=== PATIENT | female | born 1950 | race Caucasian/White ===

== ENCOUNTER 2020-06-11 05:48 | Observation (INO) | payer MEDICARE ==
[2020-06-07 12:28] LABS: BASOPHILS # (AUTO) 0.1 (0.0-0.1); BASOPHILS % 0.7 % (0.0-1.0); EOSINOPHILS # (AUTO) 0.1 (0.0-0.4); EOSINOPHILS % 1.1 % (0.0-6.0); HEMATOCRIT 41.1 % (34.2-44.1); HEMOGLOBIN 13.1 g/dL (12.0-16.0); LYMPHOCYTES # (AUTO) 1.5 (1.0-3.2); LYMPHOCYTES % 20.2 % (18.0-39.1); MEAN CORPUSCULAR HGB CONC 31.9 g/dL (31-35); MEAN CORPUSCULAR VOLUME 90.9 fL (81-99); MONOCYTES # (AUTO) 0.6 (0.2-0.8); MONOCYTES % 7.8 % (4.4-11.3); NEUTROPHILS # (AUTO) 5.1 (2.1-6.9); NEUTROPHILS % 70.1 % (38.7-80.0); PLATELET COUNT 207 x10e3/uL (140-360); RED BLOOD COUNT 4.52 x10e6/uL (3.6-5.1)
[~2020-06-11] VITALS: Ht 162.6 cm; Wt 95.3 kg
[~2020-06-11 05:48] MED LIST: CRESTOR10 MG PO; DIOVAN80 MG PO; LEVOTHYROXINE75 MCG PO; ZETIA10 MG PO
[2020-06-11] MEDS ORDERED: CEFAZOLIN SOD 1 GM/NS 50ML 100 ML IV ONE (06:19)
[2020-06-11] MEDS ORDERED: GABAPENTIN 300 MG CAP ONE (06:19)
[2020-06-11] MEDS ORDERED: DEXAMETHASONE SOD PHOS 10 MG/1 ML VIAL ONE (06:19)
[2020-06-11] MEDS ORDERED: CELECOXIB 200 MG CAP ONE (06:19)
[2020-06-11] MEDS ORDERED: TRANEXAMIC ACID 1,000 MG/10 ML ML ONE (07:00)
[2020-06-11] MEDS ORDERED: VANCOMYCIN HCL 1,000 MG ONE (07:00)
[2020-06-11] MEDS ORDERED: SODIUM CHLORIDE 0.9% 500ML 500 ML ONE (07:00)
[2020-06-11] MEDS ORDERED: ZOLPIDEM TARTRATE 5 MG TAB PO PRN (08:45)
[2020-06-11] MEDS ORDERED: KETOROLAC TROMETHAMINE 30 MG/ML VIAL IV PRN (08:45)
[2020-06-11] MEDS ORDERED: DOCUSATE SODIUM 100 MG CAP PO PRN (08:45)
[2020-06-11] MEDS ORDERED: ACETAMINOPHEN 650 MG SUPP PR PRN (08:45)
[2020-06-11] MEDS ORDERED: HYDROCODONE/APAP 7.5MG-325MG 1 EA TAB PO PRN (08:45)
[2020-06-11] MEDS ORDERED: DIPHENHYDRAMINE HCL INJ 50 MG/ML VIAL IV PRN (08:45)
[2020-06-11] MEDS ORDERED: ROPIVACAINE 246.25 MG, EPINEPHRINE HCL 1:1000 1ML 0.5 MG, CLONIDINE HCL 0.08 MG, KETORO... INJ ONE ×5 (09:00)
[2020-06-11 09:50] VITALS: BP 94/85
[2020-06-11 10:08] LABS: BASOPHILS # (AUTO) 0.1 (0.0-0.1); BASOPHILS % 0.4 % (0.0-1.0); EOSINOPHILS % 0.1 % (0.0-6.0); HEMATOCRIT 40.4 % (34.2-44.1); HEMOGLOBIN 12.9 g/dL (12.0-16.0); LYMPHOCYTES # (AUTO) 1.1 (1.0-3.2); MEAN CORPUSCULAR HEMOGLOBIN 29.7 pg (28-32); MEAN CORPUSCULAR HGB CONC 31.9 g/dL (31-35); MEAN CORPUSCULAR VOLUME 93.1 fL (81-99); MONOCYTES # (AUTO) 0.2 (0.2-0.8); MONOCYTES % 1.6 % (4.4-11.3); NEUTROPHILS # (AUTO) 9.7 (2.1-6.9); NEUTROPHILS % 87.3 % (38.7-80.0); PLATELET COUNT 203 x10e3/uL (140-360); RED BLOOD COUNT 4.34 x10e6/uL (3.6-5.1); RED CELL DISTRIBUTION WIDTH 13.1 % (11.7-14.4)
[2020-06-11] MEDS ORDERED: SODIUM CHLORIDE 0.9% 1000ML 1,000 ML IV SCH (10:15)
[2020-06-11] MEDS: ASPIRIN 325 MG TAB PO SCH ×2 (10:17→16:08)
[2020-06-11 11:13] VITALS: BP 105/54
[2020-06-11] MEDS: ONDANSETRON HCL INJ 2MG/ML 2ML 2 MG/ML VIAL IV PRN ×2 (12:00→18:06)
[2020-06-11] MEDS ORDERED: PROPOFOL IV EMULSION 10 MG/ML 20 ML VIAL ONE (13:19)
[2020-06-11] MEDS ORDERED: ONDANSETRON HCL INJ 2MG/ML 2ML 2 MG/ML VIAL ONE (13:19)
[2020-06-11] MEDS ORDERED: SEVOFLURANE INHAL SOLN 250 ML PEN BTL ONE (13:19)
[2020-06-11] MEDS ORDERED: LIDOCAINE HCL 2% LOCAL INJ 5 ML SDV VIAL INJ ONE (13:19)
[2020-06-11] MEDS: CEFAZOLIN SOD 1 GM/NS 50ML 50 ML IV SCH ×2 (15:32→23:07)
[2020-06-11 15:35] VITALS: BP 116/59
[2020-06-11] MEDS ORDERED: SODIUM CHLORIDE 0.9% 50ML 50 ML ONE (15:41)
[2020-06-11] MEDS: CELECOXIB 200 MG CAP PO SCH (16:08)
[2020-06-11] MEDS ORDERED: LIDOCAINE 2%/ EPINEPHRINE 20ML MDV ONE (19:30)
[2020-06-11] MEDS ORDERED: ROPIVACAINE 0.5% 5 MG/ML 30 ML SDV ONE (19:30)
[2020-06-11] MEDS ORDERED: FENTANYL CITRATE/PF 100MCG/2 ML INJ ONE (19:39)
[2020-06-11] MEDS ORDERED: MIDAZOLAM HCL 2 MG/2 ML VIAL ONE (19:39)
[2020-06-11 20:00] VITALS: BP 95/50
[2020-06-11 21:00] VITALS: BP 95/50
[2020-06-11] MEDS: HYDROCODONE/APAP 5MG-325MG TAB PO PRN (23:15)
[2020-06-12] VITALS: BP 101/52
[2020-06-12 04:00] VITALS: BP 97/58
[2020-06-12] MEDS: HYDROCODONE/APAP 5MG-325MG TAB PO PRN ×2 (05:29→10:10)
[2020-06-12 05:45] LABS: HEMOGLOBIN 11.2 g/dL (12.0-16.0)
[2020-06-12] MEDS: ONDANSETRON HCL INJ 2MG/ML 2ML 2 MG/ML VIAL IV PRN (06:38)
[2020-06-12 07:23] VITALS: BP 90/53
[2020-06-12 08:07] VITALS: BP 90/53
[2020-06-12] MEDS ORDERED: ACETAMINOPHEN 1000 MG/100 ML IV PRN (08:45)
[2020-06-12] MEDS: CEFAZOLIN SOD 1 GM/NS 50ML 50 ML IV SCH (08:48)
[2020-06-12] MEDS: ASPIRIN 325 MG TAB PO SCH (08:48)
[2020-06-12] MEDS: CELECOXIB 200 MG CAP PO SCH (08:48)
[2020-06-12 11:21] VITALS: BP 92/57
[2020-06-12] MEDS ORDERED: EZETIMIBE 10 MG TAB PO SCH (21:00)
[2020-06-12] MEDS ORDERED: LEVOTHYROXINE SODIUM 75 MCG TAB PO SCH (21:00)
[2020-06-12] MEDS ORDERED: SIMVASTATIN 20 MG TAB PO SCH (21:00)
== END 2020-06-12 15:02 | disposition home or self-care (01) ==
LOC: OR 05:48 → PACU V 08:45 → MED/SURG 09:47
PROVIDERS: ADMIT Specialist; ATTEND Specialist
DX: M17.0 Bilateral primary osteoarthritis of knee (principal); Z20.822 Contact with and (suspected) exposure to COVID-19; E78.5 Hyperlipidemia, unspecified; E03.9 Hypothyroidism, unspecified; K76.0 Fatty (change of) liver, not elsewhere classified; K29.70 Gastritis, unspecified, without bleeding; G47.33 Obstructive sleep apnea (adult) (pediatric); G47.00 Insomnia, unspecified; E78.00 Pure hypercholesterolemia, unspecified; R35.1 Nocturia; E66.01 Morbid (severe) obesity due to excess calories; Z68.36 Body mass index [BMI] 36.0-36.9, adult; Q60.2 Renal agenesis, unspecified; I13.10 Hypertensive heart and chronic kidney disease without heart failure, with stage 1 through stage 4 chronic kidney disease, or unspecified chronic kidney disease; E11.22 Type 2 diabetes mellitus with diabetic chronic kidney disease; Z79.01 Long term (current) use of anticoagulants; Z95.2 Presence of prosthetic heart valve; H40.9 Unspecified glaucoma; Q23.1 Congenital insufficiency of aortic valve; R23.2 Flushing; N18.30 Chronic kidney disease, stage 3 unspecified; Z01.818 Encounter for other preprocedural examination
CPT/HCPCS: 27447; 36415 ×3; 71046; 73560; 85014; 85018; 85025 ×2; 86850; 86900; 86920; 97110; 97116 ×2; 97161; 97530; C1713 ×5; C1776; G0378 ×2; J0171; J0690 ×2; J1100; J1885 ×2; J2001 ×2; J2250; J2405 ×2; J2704; J2795; J3010; J3370; J7040; U0002

== ENCOUNTER 2020-08-27 08:00 | Observation (INO) | payer MEDICARE ==
[2020-08-23 12:02] LABS: BASOPHILS % 0.7 % (0.0-1.0); EOSINOPHILS # (AUTO) 0.1 (0.0-0.4); HEMATOCRIT 40.2 % (34.2-44.1); HEMOGLOBIN 12.7 g/dL (12.0-16.0); LYMPHOCYTES # (AUTO) 1.3 (1.0-3.2); LYMPHOCYTES % 22.7 % (18.0-39.1); MEAN CORPUSCULAR HEMOGLOBIN 28.9 pg (28-32); MEAN CORPUSCULAR HGB CONC 31.6 g/dL (31-35); MEAN CORPUSCULAR VOLUME 91.4 fL (81-99); MONOCYTES # (AUTO) 0.5 (0.2-0.8); MONOCYTES % 9.2 % (4.4-11.3); NEUTROPHILS # (AUTO) 3.8 (2.1-6.9); NEUTROPHILS % 66.2 % (38.7-80.0); PLATELET COUNT 212 x10e3/uL (140-360)
[2020-08-23 12:24] LABS: INR 0.83
[2020-08-23 12:25] LABS: PARTIAL THROMBOPLASTIN TIME 29.6 seconds (23.8-35.5)
[2020-08-23 12:31] LABS: ANION GAP 14.9 mmol/L (8-16); CALCIUM 8.8 mg/dL (8.4-10.2); CREATININE, SERUM 0.99 mg/dL (0.57-1.11); POTASSIUM 4.9 mmol/L (3.5-5.1)
[~2020-08-27 08:00] MED LIST changes: +CELECOXIB 200 MG CAP ONE; +DEXAMETHASONE SOD PHOS 10 MG/1 ML VIAL ONE; +GABAPENTIN 300 MG CAP ONE; +LIOTHYRONINE SO5 MCG PO; +ROPIVACAINE 246.25 MG, EPINEPHRINE HCL 1:1000 1ML 0.5 MG, CLONIDINE HCL 0.08 MG, KETORO... INJ ONE; +SODIUM CHLORIDE 0.9% 500ML 500 ML ONE; +SODIUM CHLORIDE 0.9% 50ML 100 ML ONE; +TRANEXAMIC ACID 1,000 MG/10 ML ML ONE; +Vancomycin IV 1,000 MG ONE
[2020-08-27 12:00] VITALS: BP 109/56
[2020-08-27] MEDS ORDERED: HYDROCODONE/APAP 5MG-325MG TAB PO PRN (13:30)
[2020-08-27] MEDS ORDERED: ZOLPIDEM TARTRATE 5 MG TAB PO PRN (13:30)
[2020-08-27] MEDS ORDERED: ONDANSETRON HCL INJ 2MG/ML 2ML 2 MG/ML VIAL IV PRN (13:30)
[2020-08-27] MEDS ORDERED: SODIUM CHLORIDE 0.9% 1000ML 1,000 ML IV SCH (13:30)
[2020-08-27] MEDS ORDERED: HYDROCODONE/APAP 7.5MG-325MG 1 EA TAB PO PRN (13:30)
[2020-08-27] MEDS ORDERED: ACETAMINOPHEN 1000 MG/100 ML IV PRN (13:45)
[2020-08-27] MEDS ORDERED: DIPHENHYDRAMINE HCL INJ 50 MG/ML VIAL IV PRN (13:45)
[2020-08-27] MEDS ORDERED: KETOROLAC TROMETHAMINE 30 MG/ML VIAL IV PRN (13:45)
[2020-08-27] MEDS ORDERED: Cefazolin 1 GM in SODIUM CHLORIDE 0.9% 50ML 50 ML IV SCH (15:00)
[2020-08-27] MEDS ORDERED: ASPIRIN 81 MG CHEW TAB PO SCH (17:00)
[2020-08-27] MEDS ORDERED: CELECOXIB 200 MG CAP PO SCH (17:00)
[2020-08-27] MEDS ORDERED: DOCUSATE SODIUM 100 MG CAP PO SCH (17:00)
[2020-08-28] MEDS ORDERED: ONDANSETRON HCL INJ 2MG/ML 2ML 2 MG/ML VIAL ONE (10:26)
[2020-08-28 10:41] LABS: HEMATOCRIT 34.3 % (34.2-44.1)
== END 2020-08-28 10:55 | disposition home or self-care (01) ==
LOC: OR 08:00 → MED/SURG 12:30
PROVIDERS: ADMIT Specialist; ATTEND Specialist
DX: M17.0 Bilateral primary osteoarthritis of knee (principal); E66.01 Morbid (severe) obesity due to excess calories; Z68.41 Body mass index [BMI] 40.0-44.9, adult; D64.9 Anemia, unspecified; E78.5 Hyperlipidemia, unspecified; E03.9 Hypothyroidism, unspecified; I10 Essential (primary) hypertension; G47.33 Obstructive sleep apnea (adult) (pediatric); Z96.651 Presence of right artificial knee joint; Z01.818 Encounter for other preprocedural examination
CPT/HCPCS: 27447; 36415 ×2; 73560; 80048; 85014; 85018; 85025; 85610; 85730; 93005; 97110; 97116 ×2; 97139; 97162; G0378 ×2; J0171; J0690; J1100; J1885; J2405; J2795; J3370; J7040; 86920; C1713; J7030